=== PATIENT | male | born 1970 | race Caucasian/White ===

== ENCOUNTER 2020-09-06 17:45 | Emergency (ER) | payer SELFPAY ==
[~2020-09-06] VITALS: Ht 182.9 cm; Wt 84.0 kg
[2020-09-06 19:58] LABS: HEMATOCRIT 42.5 % (39.0-50.0); HEMOGLOBIN 14.4 g/dl (14.0-18.0); IMMATURE GRANULOCYTES 0.1 % (0.0-5.0); MEAN CELL VOLUME 102.4 fL CALC (80.0-100.0); MEAN CORPUSCULAR HGB 34.7 pG CALC (26.0-32.0); MEAN CORPUSCULAR HGB CONC 33.9 g/dL CAL (32.0-36.0); NEUT# 4.37 thou/uL (1.82-7.42); RED BLOOD COUNT 4.15 mill/uL (4.70-6.10); RED CELL DISTRI WIDTH 12.1 % (11.5-15.5)
[2020-09-06 20:18] LABS: ALBUMIN 3.6 g/dL (3.2-5.0); BILIRUBIN, TOTAL 0.3 mg/dL (0.0-1.4); CREATININE 1.5 mg/dL (0.7-1.3); POTASSIUM 4.6 mmol/l (3.5-5.1); TOTAL PROTEIN 6.4 g/dL (6.3-8.2)
[2020-09-06 21:36] LABS: URINE BILIRUBIN - DIPSTICK NEGATIVE (NEGATIVE); URINE BLOOD DIPSTICK TRACE-INTACT (NEGATIVE); URINE COLOR YELLOW; URINE GLUCOSE - DIPSTICK NEGATIVE (NEGATIVE); URINE KETONE TRACE mg/dL (NEGATIVE); URINE LEUK ESTERASE NEGATIVE (NEGATIVE); URINE PROTEIN - DIPSTICK NEGATIVE (NEG-TRACE); URINE SPECIFIC GRAVITY 1.025; URINE UROBILINOGEN - DIPSTICK 0.2 E.U./dL (0.2)
[2020-09-06 21:42] LABS: URINE NITRITE - DIPSTICK NEGATIVE (Negative)
[2020-09-06] MEDS ORDERED: TRAMADOL HCL50 MG PO (21:52)
[2020-09-06] MEDS ORDERED: VOLTAREN75 MG PO (21:52)
[2020-09-06 22:13] VITALS: BP 164/104
== END 2020-09-06 22:14 | disposition home or self-care (01) | DRG 694 ==
LOC: ED 17:45
PROVIDERS: Family Medicine
DX: N20.0 Calculus of kidney (principal); F17.210 Nicotine dependence, cigarettes, uncomplicated; Z87.442 Personal history of urinary calculi

== ENCOUNTER 2021-05-28 15:07 | Emergency (ER) | payer OTHER ==
[~2021-05-28] VITALS: Ht 182.9 cm; Wt 80.7 kg
[~2021-05-28 15:07] MED LIST: TRAMADOL HCL50 MG PO; VOLTAREN75 MG PO
[2021-05-28 15:13] VITALS: BP 143/86
[2021-05-28] MEDS ORDERED: HYDROCO/APAP1 TA9 PO (15:43)
[2021-05-28 15:48] VITALS: BP 143/86
== END 2021-05-28 15:52 | disposition home or self-care (01) | DRG 914 ==
LOC: ED 15:07
DX: S68.120A Partial traumatic metacarpophalangeal amputation of right index finger, initial encounter (principal); F17.200 Nicotine dependence, unspecified, uncomplicated; W31.2XXA Contact with powered woodworking and forming machines, initial encounter

== ENCOUNTER 2022-08-29 15:53 | Emergency (ER) | payer SELFPAY ==
[~2022-08-29] VITALS: Ht 182.9 cm; Wt 86.2 kg
[2022-08-29] VITALS (14 sets, daily range): BP systolic 121–164; BP diastolic 79–101
[~2022-08-29 15:53] MED LIST changes: +HYDROCO/APAP1 TA9 PO
[2022-08-29 16:49] LABS: BASO% 0.5 % (0-3); EOS% 0.1 % (0-8); HEMATOCRIT 43.3 % (39.0-50.0); HEMOGLOBIN 14.8 g/dl (14.0-18.0); IMMATURE GRANULOCYTES 0.3 % (0.0-5.0); LYMPH% 8.8 % (15-41); MEAN CELL VOLUME 102.4 fL CALC (80.0-100.0); MEAN CORPUSCULAR HGB CONC 34.2 g/dL CAL (32.0-36.0); MONO% 6.5 % (2-13); NEUT# 12.73 thou/uL (1.82-7.42); NEUT% 83.8 % (42-76); RED BLOOD COUNT 4.23 mill/uL (4.70-6.10); RED CELL DISTRI WIDTH 12.5 % (11.5-15.5)
[2022-08-29 17:01] LABS: ALBUMIN 4.1 g/dL (3.2-5.0); ALKALINE PHOSPHATASE 82 u/l (38-126); BUN 18 mg/dL (9-20); BUN/CREATININE RATIO 15 (12-20 (CALC)); CARBON DIOXIDE 21 mmol/l (22-30); CHLORIDE 110 mmol/l (95-108); CREATININE 1.2 mg/dL (0.7-1.3); GFR FOR AFR.AMER. > 60 ML/MIN (>=60 (CALC)); GFR OTHER RACES > 60 ML/MIN (>=60 (CALC)); SGOT/AST 26 u/l (17-59); SODIUM 140 mmol/l (137-146); TOTAL PROTEIN 7.2 g/dL (6.3-8.2)
[2022-08-29 17:04] LABS: ANION GAP 13 (6-22 (CALC)); BILIRUBIN, TOTAL 0.8 mg/dL (0.2-1.3); POTASSIUM 3.6 mmol/l (3.5-5.1)
[2022-08-29 18:32] LABS: URINE COLOR YELLOW; URINE GLUCOSE - DIPSTICK NEGATIVE (NEGATIVE); URINE KETONE 40 mg/dL (NEGATIVE); URINE SPECIFIC GRAVITY >=1.030
[2022-08-29 18:33] LABS: URINE BLOOD DIPSTICK SMALL (NEGATIVE); URINE LEUK ESTERASE NEGATIVE (NEGATIVE); URINE NITRITE - DIPSTICK NEGATIVE (Negative); URINE PH 5.5 (4.5-8.0); URINE PROTEIN - DIPSTICK 30 mg/dL (NEG-TRACE); URINE UROBILINOGEN - DIPSTICK 0.2 E.U./dL (0.2)
[2022-08-29 18:34] LABS: URINE WBC 0-2 WBC/hpf (0-5)
[2022-08-29] MEDS ORDERED: TORADOL PO (18:53)
[2022-08-29] MEDS ORDERED: PERCOCET 5/321 COMBO PO (18:53)
[2022-08-29] MEDS ORDERED: TAMSULOSIN0.4 MG PO (18:53)
== END 2022-08-29 19:06 | disposition home or self-care (01) | DRG 694 ==
LOC: ED 15:53
PROVIDERS: Nurse Practitioner
DX: N20.2 Calculus of kidney with calculus of ureter (principal); F17.210 Nicotine dependence, cigarettes, uncomplicated; Z87.442 Personal history of urinary calculi

== ENCOUNTER 2024-01-02 09:18 | Emergency (ER) | payer SELFPAY ==
[2024-01-02] VITALS (11 sets, daily range): BP systolic 131–174; BP diastolic 68–106
[~2024-01-02] VITALS: Ht 182.9 cm; Wt 81.0 kg
[~2024-01-02 09:18] MED LIST changes: +IBUPROFEN600 MG PO; +PERCOCET 5/321 COMBO PO; +PERCOCET1 TA4 PO; +TAMSULOSIN0.4 MG PO; +TORADOL PO
[2024-01-02] MEDS ORDERED: KETOROLAC TROMETHAMINE 30 MG/ML SDV IM STA (09:59)
[2024-01-02] MEDS ORDERED: ONDANSETRON HCl 4 MG/2 ML SDV IV STA (09:59)
[2024-01-02 10:07] LABS: URINE BILIRUBIN - DIPSTICK Negative (NEGATIVE); URINE BLOOD DIPSTICK Small (NEGATIVE); URINE GLUCOSE - DIPSTICK Negative (NEGATIVE); URINE KETONE 15 mg/dL (NEGATIVE); URINE LEUK ESTERASE Negative (NEGATIVE); URINE NITRITE - DIPSTICK Negative (Negative); URINE PROTEIN - DIPSTICK 30 mg/dL (NEG-TRACE); URINE SPECIFIC GRAVITY >=1.030; URINE UROBILINOGEN - DIPSTICK 0.2 E.U./dL (0.2)
[2024-01-02 10:26] LABS: BASO% 0.7 % (0-3); EOS% 0.8 % (0-8); HEMATOCRIT 45.7 % (39.0-50.0); HEMOGLOBIN 15.9 g/dl (14.0-18.0); IMMATURE GRANULOCYTES 0.2 % (0.0-5.0); LYMPH% 16.5 % (15-41); MEAN CELL VOLUME 105.3 fL CALC (80.0-100.0); MEAN CORPUSCULAR HGB 36.6 pG CALC (26.0-32.0); MEAN CORPUSCULAR HGB CONC 34.8 g/dL CAL (32.0-36.0); MONO% 6.9 % (2-13); NEUT# 10.02 thou/uL (1.82-7.42); NEUT% 74.9 % (42-76); RED BLOOD COUNT 4.34 mill/uL (4.70-6.10); RED CELL DISTRI WIDTH 12.9 % (11.5-15.5)
[2024-01-02 10:30] LABS: URINE COLOR Yellow
[2024-01-02 10:34] LABS: URINE MUCUS FEW hpf (NONE-FEW)
[2024-01-02] MEDS ORDERED: ISOVUE-300 (Iopamidol) 100 ML SDV IV ONE (10:50)
[2024-01-02 10:53] LABS: ALBUMIN 4.5 g/dL (3.2-5.0); BILIRUBIN, TOTAL 0.9 mg/dL (0.2-1.3); CREATININE 1.3 mg/dL (0.7-1.3); POTASSIUM 4.3 mmol/l (3.5-5.1); TOTAL PROTEIN 7.7 g/dL (6.3-8.2)
[2024-01-02] MEDS ORDERED: PERCOCET1 TA2 PO (12:06)
[2024-01-02] MEDS ORDERED: BACTRIM DS1 TAB PO (12:06)
== END 2024-01-02 12:46 | disposition home or self-care (01) | DRG 694 ==
LOC: ED 09:18
PROVIDERS: Family Medicine
DX: N20.2 Calculus of kidney with calculus of ureter (principal); Z97.0 Presence of artificial eye; Z87.442 Personal history of urinary calculi; Z72.0 Tobacco use